=== PATIENT | female | born 1960 | race Caucasian/White ===

== ENCOUNTER 2016-12-21 09:36 | Outpatient (CLI) ==
[2016-12-21 10:24] LABS: CREATININE 0.74 mg/dL (0.60-1.30)
--- NOTE | 2016-12-21 11:23 | CT ---
EXAM: CT soft tissue neck with and without contrast. HISTORY: Anterior neck swelling for 2 months. Hypothyroidism. Dysphagia. Previous cervical spine surgery. COMPARISON: Cervical spine CT 03/01/2016. TECHNIQUE: Multiple axial images of the neck were obtained prior to and following intravenous admin istration of 75 mL of Omnipaque 350, low osmolar. Images were reformatted in the sagittal and coron al plane. FINDINGS: No intracranial or intraorbital abnormality identified. The parotid and submandibular glands are unremarkable.. Scattered nonenlarged lymph nodes are prese nt throughout the neck at multiple levels. No subcutaneous edema or fluid collections noted. There is asymmetric effacement of the left piriform sinus. No discrete mass identified. Pharyngeal soft tissues are otherwise unremarkable. Epiglottis and laryngeal structures are without localized abno rmality. Subglottic airway is normal in caliber. Thyroid gland is small. Vascular structures in the neck are patent. Atherosclerotic calcifications are present within both proximal internal carotid arteries. ACDF changes seen from C4-C7. Large anterior osteophytes at C2-3 and C3-4 as well as C7-T1. The ramona ng apices are clear. IMPRESSION: 1. Effacement of the left piriform sinus which is nonspecific. No discrete mass identified. Corre late with direct inspection as warranted. 2. Small thyroid gland.
== END 2016-12-21 09:37 | disposition home or self-care (01) ==
LOC: RAD 09:36
PROVIDERS: ATTEND Physician Assistant
DX: R13.10 Dysphagia, unspecified (principal); E03.9 Hypothyroidism, unspecified
CPT/HCPCS: 36415; 82565

== ENCOUNTER 2017-01-03 12:12 | Outpatient (CLI) ==
--- NOTE | 2017-01-05 10:17 | MAMMO ---
EXAM: Digital screening mammogram HISTORY: Screening COMPARISON: None FINDINGS: Digital MLO and CC views of the right and left breast were performed. There are scatter ed fibroglandular densities. There is no evidence for mass, asymmetry, distortion, or suspicious ca lcifications in either breast. IMPRESSION: 1. No evidence of malignancy in the right or left breast. 2. Annual screening mammogram is recommended in one year. BIRADS category 1, negative examination
== END 2017-01-03 12:13 | disposition home or self-care (01) ==
LOC: RAD 12:12
PROVIDERS: ATTEND Physician Assistant
DX: Z12.31 Encounter for screening mammogram for malignant neoplasm of breast (principal)

== ENCOUNTER 2017-10-12 13:49 | Outpatient (CLI) ==
--- NOTE | 2017-10-12 15:45 | US ---
EXAM: Ultrasound soft tissue neck HISTORY: Neck mass COMPARISON: None FINDINGS: Ultrasound soft tissue neck was performed in the region of clinical concern, left anterior neck. This region, there is a nonspecific normal size lymph node with fatty hilum measuring 0.5 x 0 .8 x 0.7 cm IMPRESSION: Nonspecific lymph node in the region of clinical concern.
== END 2017-10-12 13:50 | disposition home or self-care (01) ==
LOC: RAD 13:49
PROVIDERS: ATTEND Physician Assistant
DX: R22.1 Localized swelling, mass and lump, neck (principal)

== ENCOUNTER 2018-05-04 11:28 | Outpatient (CLI) ==
--- NOTE | 2018-05-04 12:02 | DI ---
EXAM: PA and lateral views of the chest HISTORY: Dyspnea COMPARISON: None FINDINGS: The cardiomediastinal silhouette is normal. There is no pneumothorax or pleural effusion. There is no consolidation, nodule or mass. The osseous structures demonstrate anterior cervical fu sarwat hardware with mild degenerative disease. IMPRESSION: No acute cardiopulmonary process
== END 2018-05-04 11:29 | disposition home or self-care (01) ==
LOC: CAR 11:28
PROVIDERS: ATTEND Physician Assistant
DX: R06.00 Dyspnea, unspecified (principal)
CPT/HCPCS: 93005; 93010

== ENCOUNTER 2018-05-16 11:57 | Outpatient (CLI) ==
[2018-05-16] MEDS ORDERED: ALBUTEROL 0.083% NEB NEB STA (12:35)
== END 2018-05-16 11:58 | disposition home or self-care (01) ==
LOC: CAR 11:57
PROVIDERS: ATTEND Physician Assistant
DX: R06.00 Dyspnea, unspecified (principal)

== ENCOUNTER 2018-05-19 12:04 | Outpatient (CLI) ==
--- NOTE | 2018-05-19 15:45 | DI ---
EXAM: Two views of the chest. History: Cough. Comparison: Chest radiograph 05/04/2018 Findings: Heart size is normal. No focal consolidation. No appreciable pleural fluid and no pneumo thorax. No acute osseous abnormalities. Postsurgical changes of the cervical spine. Impression: No acute cardiopulmonary process
== END 2018-05-19 12:05 | disposition home or self-care (01) ==
LOC: CAR 12:04
PROVIDERS: ATTEND Physician Assistant
DX: R07.89 Other chest pain (principal); R05 Cough
CPT/HCPCS: 93005; 93010

== ENCOUNTER 2018-05-30 11:26 | Outpatient (CLI) ==
--- NOTE | 2018-05-30 14:57 | DI ---
EXAM: Three views of the cervical spine. History: Cervical neck pain. Comparison: Cervical spine radiograph 03/20/2018 Findings / impression: No acute fracture or subluxation of the cervical spine. Stable and grossly i ntact anterior cervical fusion hardware from C4-C7. Large anterior osteophytes again seen at C2-3 an d C3-4. No change compared to the prior study.
== END 2018-05-30 11:27 | disposition home or self-care (01) ==
LOC: RAD 11:26
PROVIDERS: ATTEND Physician Assistant
DX: M54.2 Cervicalgia (principal)

== ENCOUNTER 2018-10-31 12:05 | Outpatient (CLI) | END 2018-10-31 12:06 | disposition home or self-care (01) | LOC: LAB 12:05 | PROVIDERS: ATTEND Internal Medicine Critical Care Medicine | DX: J98.4 Other disorders of lung (principal); R06.09 Other forms of dyspnea | CPT/HCPCS: 36415; 83520; 85651; 86038; 86235; 86256; 86430 ==

== ENCOUNTER 2018-12-28 08:15 | Outpatient (CLI) ==
--- NOTE | 2018-12-28 11:55 | CT ---
EXAM: CT of the soft tissue neck with and without contrast History: Difficulty swallowing. Technique: Multiplanar CT images through the soft tissue neck were obtained with and without the adm inistration of IV contrast Comparison: CT soft tissue neck 12/21/2016 Findings: The visualized upper lungs are free of consolidation. Stable anterior cervical fusion hard alberts. Epiglottis is not thickened. No prevertebral soft tissue swelling. Large anterior osteophyte s at C2-3 and C3-4. Orbits are intact. The visualized intracranial contents demonstrate no acute findings. Parotid glan ds and submandibular glands are unremarkable. No peritonsillar inflammation. No pathologically enla rged lymph nodes. Small or absent thyroid gland. Impression: 1. No acute finding within the soft tissue neck. 2. Small or absent thyroid gland. 3. No pathologically enlarged lymph nodes. 4. Large anterior osteophytes within the cervical spine could cause some difficulty with swallowing.
== END 2018-12-28 08:16 | disposition home or self-care (01) ==
LOC: RAD 08:15
PROVIDERS: ATTEND Physician Assistant
DX: R22.1 Localized swelling, mass and lump, neck (principal)

== ENCOUNTER 2019-03-14 12:30 | Outpatient (CLI) ==
--- NOTE | 2019-03-14 15:14 | DI ---
EXAM: Two views of the right knee. History: Right knee pain. Findings: No acute fracture or dislocation. Mild tricompartmental joint space narrowing with tiny o steophytes. Superior patellar enthesiopathy. Mild anterior soft tissue swelling Impression: 1. No acute osseous abnormality. 2. Mild arthritis. 3. Superior patellar enthesiopathy 4. Mild anterior soft tissue swelling
--- NOTE | 2019-03-14 15:16 | DI ---
EXAM: Two views right tibia/fibular HISTORY: Pain and leg COMPARISON: None. FINDINGS/IMPRESSION: Alignment: Anatomic. Bones: No fracture or aggressive osseous lesion. Joint spaces: Preserved. Soft tissues: No focal swelling.
== END 2019-03-14 12:31 | disposition home or self-care (01) ==
LOC: RAD 12:30
PROVIDERS: ATTEND Physician Assistant
DX: M79.604 Pain in right leg (principal)